=== PATIENT | male | born 1935 | race Caucasian/White ===

== ENCOUNTER 2020-07-07 18:56 | Inpatient (IN) | payer MEDICARE, OTHER ==
[~2020-07-07] VITALS: Ht 177.8 cm; Wt 69.9 kg
--- NOTE | 2020-07-07 19:03 | NUR ---
PT AAOX3 (NAME, , YEAR) [place]DE[place] FROM [facility] FOR BEING AGGRESSIVE. PT PLACED ON MONITOR AND PULSE OX. VSS. AWAITING ORDERS.
[2020-07-07 19:24] LABS: BASOPHILS % (AUTO) 0.2 % (0.0-2.0); EOSINOPHILS % (AUTO) 1.1 % (0.0-6.0); HEMATOCRIT 27 % (39-51); HEMOGLOBIN 9.3 g/dL (13.5-17.5); LYMPHOCYTES # (AUTO) 0.5 /CMM (0.8-4.8); MEAN CORPUSCULAR HGB CONC 34 g/dl (31.0-36.0); MEAN CORPUSCULAR VOLUME 103 fL (80-96); MONOCYTES # (AUTO) 0.5 /CMM (0.1-1.30); MONOCYTES % (AUTO) 7.3 % (2.0-12.0); NEUTROPHILS # (AUTO) 5.7 /CMM (1.8-8.9); NEUTROPHILS % (AUTO) 84.4 % (43.0-81.0); PLATELET COUNT (AUTO) 208 /CMM (150-450); RED BLOOD CELL COUNT(AUTO) 2.64 MIL/uL (4.5-6.0); WHITE BLOOD COUNT (AUTO) 6.8 K/uL (4.3-11.0)
[2020-07-07 19:32] LABS: CALCIUM, SERUM 8.9 mg/dL (8.5-10.1); CARBON DIOXIDE 25 mmol/L (21-32); CHLORIDE 108 mmol/L (98-107); CREATININE 2.4 mg/dL (0.6-1.3); GLUCOSE 241 mg/dL (74-106); POTASSIUM 5.5 mmol/L (3.5-5.1); SODIUM SERUM 143 mmol/L (136-145); UREA NITROGEN, BLOOD 62 mg/dL (7-18)
[2020-07-07 19:38] LABS: ALANINE AMINOTRANSFERASE 52 U/L (12-78); ALBUMIN 2.9 g/dL (3.4-5.0); ALCOHOL, BLOOD < 3 mg/dL (0-0); ALKALINE PHOSPHATASE 52 U/L (46-116); ASPARTATE AMINOTRANSFERASE 58 U/L (15-37); BILIRUBIN,DIRECT 0.1 mg/dL (0.0-0.2); BILIRUBIN,TOTAL 0.2 mg/dL (0.2-1.0); TOTAL PROTEIN, SERUM 6.3 g/dL (6.4-8.2)
[2020-07-07 19:40] LABS: ACETAMINOPHEN < 2 ug/ml (10-30)
[2020-07-07 20:13] LABS: BILIRUBIN,URINE Negative (NEGATIVE); COLOR,URINE YELLOW (YELLOW); LEUKOCYTE ESTERASE ,URINE Moderate (NEGATIVE); NITRITE, URINE Positive (NEGATIVE); PH,URINE 5.5 (5.0-8.0); PROTEIN,URINE 100 mg/dl (NEGATIVE); UGLUCOSE Negative (NEGATIVE); UROBILINOGEN,URINE 0.2 EU/dL (0.2)
[2020-07-07 20:19] LABS: BACTERIA,URINE 3+ /HPF (None Seen); RBC,URINE 51-80 /HPF (0-2); SQUAMOUS EPITHELIAL CELL,UR Few /HPF (None Seen); WBC,URINE TOO NUMEROUS TO COUN /HPF (0-3)
[2020-07-07] MEDS ORDERED: ASPIRIN 81 MG TAB.CHEW PO ONE (20:30)
[2020-07-07] MEDS ORDERED: ASPIRIN 81 MG TAB.CHEW ONE (20:33)
[2020-07-07] MEDS ORDERED: MAG HYDROX/AL HYDROX/SIMETH 30 ML UDC PO PRN (21:00)
[2020-07-07] MEDS ORDERED: ACETAMINOPHEN 325 MG TABLET PO PRN (21:00)
[2020-07-07] MEDS ORDERED: LORAZEPAM 1 MG TABLET PO PRN (21:00)
[2020-07-07] MEDS ORDERED: MORPHINE SULFATE INJ 2 MG/ML DISP.SYRIN IV PRN (21:00)
[2020-07-07] MEDS ORDERED: NITROGLYCERIN 0.4 MG/TAB BOTTLE SL PRN (21:00)
[2020-07-07] MEDS ORDERED: DOCUSATE SODIUM 100 MG CAPSULE PO PRN (21:00)
[2020-07-07] MEDS ORDERED: ONDANSETRON HCL/PF 4 MG/2 ML VIAL IVP PRN (21:00)
--- NOTE | 2020-07-07 21:52 | NUR ---
BED ASSIGNMENT 104
[2020-07-07 22:00] VITALS: BP 138/55
--- NOTE | 2020-07-07 22:36 | NUR ---
RN NOTE RECEIVED PT FROM ER ACCOMPANIED BY RN AND EMT UNDER ACLS PROTOCOL. PT IS ALERT AND ORIENTED X 2 WITH PHYSICAL AND VERBAL AGGRESSION TOWARDS STAFF. ON ROOM AIR, RESPIRATIONS UNLABORED, DENIES PAIN OR DISCOMFORT, SR ON THE TELE MONITOR, VITAL SIGNS STABLE, COMPREHENSIVE PHYSICAL ASSESSMENT AND BELONGING CHECK DONE, WITH RIGHT HAND 20G IV DONE. SAFETY MEASURES IN PLACE PER PROTOCOL, BED ALARM ON, BED LOCKED AND IN LOW POSITION, SIDE RAILS UP X 2, WILL MONITOR PATIENT AND CARRY OUT ACTIVE MD ORDERS.
--- NOTE | 2020-07-07 22:40 | NUR ---
REPORT VENKAT ZEPEDA, PT TRANSFERED PER ACLS PROTOCOL
--- NOTE | 2020-07-07 23:12 | NUR ---
RN NOTE PT PHYSICALLY AND VERBALLY AGGRESSIVE. ALSO ATTEMPTING TO PULL OUT IV AND PUNCH STAFF MEMBERS DESPITE REORIENTATION AND DE-ESCALATION OF STIMULI, OBTAINED ORDER FOR BILATERAL SOFT WRIST RESTRAINTS FROM [facility].
[2020-07-08] MEDS ORDERED: CEFTRIAXONE 1 G VIAL ONE (00:34)
[2020-07-08] MEDS: CEFTRIAXONE 1 G in IV D5W 50 ML IV SCH ×2 (00:37→23:21)
[2020-07-08 03:57] LABS: BASOPHILS % (AUTO) 0.2 % (0.0-2.0); EOSINOPHILS % (AUTO) 1.9 % (0.0-6.0); HEMATOCRIT 25 % (39-51); HEMOGLOBIN 8.7 g/dL (13.5-17.5); LYMPHOCYTES # (AUTO) 0.6 /CMM (0.8-4.8); LYMPHOCYTES % (AUTO) 9.6 % (20.0-44.0); MEAN CORPUSCULAR HGB CONC 34 g/dl (31.0-36.0); MEAN CORPUSCULAR VOLUME 102 fL (80-96); MONOCYTES # (AUTO) 0.5 /CMM (0.1-1.30); MONOCYTES % (AUTO) 8.3 % (2.0-12.0); NEUTROPHILS # (AUTO) 4.9 /CMM (1.8-8.9); PLATELET COUNT (AUTO) 194 /CMM (150-450); RED BLOOD CELL COUNT(AUTO) 2.47 MIL/uL (4.5-6.0); WHITE BLOOD COUNT (AUTO) 6.1 K/uL (4.3-11.0)
[2020-07-08 04:00] VITALS: BP 140/62
[2020-07-08 04:54] LABS: ALANINE AMINOTRANSFERASE 52 U/L (12-78); ALBUMIN 2.7 g/dL (3.4-5.0); ALKALINE PHOSPHATASE 49 U/L (46-116); ASPARTATE AMINOTRANSFERASE 49 U/L (15-37); BILIRUBIN,TOTAL 0.2 mg/dL (0.2-1.0); CALCIUM, SERUM 8.8 mg/dL (8.5-10.1); CARBON DIOXIDE 23 mmol/L (21-32); CHLORIDE 109 mmol/L (98-107); GLUCOSE 159 mg/dL (74-106); PHOSPHORUS 3.5 mg/dL (2.5-4.9); POTASSIUM 4.6 mmol/L (3.5-5.1); SODIUM SERUM 145 mmol/L (136-145); UREA NITROGEN, BLOOD 62 mg/dL (7-18)
[2020-07-08 05:06] LABS: CHOLESTEROL 70 mg/dL (<200); HDL CHOLESTEROL 43 mg/dL (40-60); LDL 23 mg/dL (0-99); THYROID STIMULATING HORMONE 5.052 uIU/mL (0.358-3.74); TRIGLYCERIDES 41 mg/dL (30-150)
--- NOTE | 2020-07-08 06:33 | NUR ---
RN NOTE NO ACUTE CHANGES OBSERVED OVERNIGHT, PT CURRENTLY SLEEPING IN BED IN SEMI MAGUIRE'S POSITION. NO SIGNS OF PAIN OR DISCOMFORT. ON ROOM AIR, RESPIRATIONS UNLABORED, SR ON THE TELE MONITOR, WITH RIGHT HAND 20G IV FLUSHED AND PATENT WITHOUT COMPLICATIONS NOTED AT SITE. ALL NEEDS MET AND ATTENDED TO, SAFETY MEASURES IN PLACE PER PROTOCOL, BILATERAL SOFT WRIST RESTRAINTS IN PLACE ORDERED FOR SAFETY, VISUAL AND CIRCULATORY CHECKS DONE Q15M, BED ALARM ON, BED LOCKED AND IN LOW POSITION, SIDE RAILS UP X 2, WILL ENDORSE TO MORNING RN FOR JOSH.
--- NOTE | 2020-07-08 07:59 | NUR ---
CASING SPLITTER NOTE RECEIVED LYING IN BED IN SEMI MAGUIRE'S POSITION, AWAKE AND ALERT/ORIENTED PT CURRENTLY ON RA NO SOB NOTED AT THIS TIME . RESPIRATIONS EVEN AND UNLABORED. PT DENIES TROUBLE BREATHING. PT ALSO DENIES PAIN OR DISCOMFORT AT THIS TIME. NSR ON THE CERTIFIED REAL ESTATE APPRAISER, IS WITH L RIGHT HAND 20G IV HL INTACT AND FLUSHED WELL PLAN OF CARE DISCUSSED, SAFETY MEASURES IN PLACE, BED LOCKED AND IN LOW POSITION, SIDE RAILS UP X 2, CALL LIGHT WITHIN REACH, WILL MONITOR PATIENT CLOSELY, FED BREAKFAST BY BILLY
[2020-07-08 08:00] VITALS: BP 134/49
[2020-07-08] MEDS: ENOXAPARIN SODIUM 30 MG/0.3 ML DISP.SYRIN SQ SCH (08:32)
[2020-07-08] MEDS: ASPIRIN 81 MG TAB.CHEW PO SCH (08:32)
--- NOTE | 2020-07-08 08:35 | NUR ---
WOUND CARE CONSULT: PT HAVING PROCEDURE AT THIS TIME. WILL SEE PT AT LATER TIME FOR SKIN ASSESSMENT.
[2020-07-08] MEDS ORDERED: ACET325T53 PO (08:57)
[2020-07-08] MEDS ORDERED: TADA5TAB13 PO (08:57)
[2020-07-08] MEDS ORDERED: ROSU40TA PO (08:57)
[2020-07-08] MEDS ORDERED: METO-357 PO (08:57)
[2020-07-08] MEDS ORDERED: INSU100V28 IJ (08:57)
[2020-07-08] MEDS ORDERED: CLOP75TA15 PO (08:57)
[2020-07-08] MEDS ORDERED: MEMA5TAB PO (08:57)
[2020-07-08] MEDS ORDERED: TAMS-12 PO (08:57)
[2020-07-08] MEDS ORDERED: DONE10TA44 PO (08:57)
[2020-07-08] MEDS ORDERED: RISP0.5T5 PO (08:57)
[2020-07-08] MEDS ORDERED: GABA-532 PO ×2 (08:57)
[2020-07-08] MEDS ORDERED: LEVO25TA7 PO (08:57)
[2020-07-08] MEDS ORDERED: MEGE40TA5 PO (08:57)
[2020-07-08] MEDS ORDERED: RISP0.5T65 PO (08:57)
[2020-07-08] MEDS: CARVEDILOL 12.5 MG TABLET PO SCH ×2 (09:13→21:35)
--- NOTE | 2020-07-08 09:14 | NUR ---
WOUND CARE CONSULT: PT PRESENTS WITH MULTIPLE WOUNDS, PRESENT ON ADMISSION INCLUDING SACRAL AND LOWER EXTREMITY WOUNDS. RECOMMEND SURGICAL AND DPM CONSULTS. DR SHELBY LAGUNAS AND DR CACERES CALLED FOR CONSULT REQUESTS. RECOMMENDATIONS MADE FOR SKIN PROTECTION AND WOUND CARE. DISCUSSED WITH NURSING STAFF. PT TO BE PLACED ON [facility] IS[facility] LOW AIRLOSS BED. IN AGREEMENT WITH PLAN OF CARE. Addendum: 07/08/20 at 0916 by DHRUV HANEY WNDNU Amended: Links added.
[2020-07-08] MEDS ORDERED: Z GUARD REMEDY 2 OZ OINT TP PRN (10:00)
[2020-07-08] MEDS ORDERED: HYDROGEL DRESSING 90 GM TUBE TP PRN (10:00)
[2020-07-08] MEDS: Z GUARD REMEDY 2 OZ OINT TP SCH (10:27)
[2020-07-08] MEDS: HYDROGEL DRESSING 90 GM TUBE TP SCH (10:28)
--- NOTE | 2020-07-08 10:49 | NUR ---
HOOKER OFF NOTE CONDOM CATH PLACED ORDERED
[2020-07-08] MEDS ORDERED: risperiDONE 0.25 MG TABLET PO PRN (11:30)
--- NOTE | 2020-07-08 11:35 | NUR ---
MS RN NOTE PER [facility] DOCTOR TIMOTHY PLACED ORDER FOR RISPERIDONE ,ORDER CARRIED OUT
[2020-07-08 12:00] VITALS: BP 106/52
[2020-07-08] MEDS ORDERED: ACETAMINOPHEN 325 MG TABLET PO PRN (12:00)
[2020-07-08] MEDS ORDERED: DEXTROSE 50%-WATER 50 ML DISP.SYRIN IV PRN (12:00)
[2020-07-08] MEDS: BLOOD SUGAR DIAGNOSTIC 1 EACH STRIP VI SCH ×3 (12:10→21:35)
--- NOTE | 2020-07-08 12:10 | NUR ---
WOMEN'S LACROSSE COACH NOTE REFUSED TO EAT ,HOLD COVERAGE WITH INSULIN FOR NOW BLOOD SUGAR 173 MG\ DL
--- NOTE | 2020-07-08 12:13 | NUR ---
WARD NURSE NOTE KEVIN ROLLINS DIESEL AUTOMOTIVE TECHNICIAN AT BEDSIDE , UPDATED PATIENT CONDITION
[2020-07-08] MEDS: IV NS 0.9% 1,000 ML IV PRN ×2 (12:35→23:33)
--- NOTE | 2020-07-08 12:35 | NUR ---
m/s care asst: notes received pt in bed asleep, but easily arousable. on albina wrist restraint, released and repositioned. kept comfortable. will continue to monitor.
--- NOTE | 2020-07-08 12:45 | NUR ---
ms rn note report given to Theodore grimm
--- NOTE | 2020-07-08 13:30 | NUR ---
m/s immigration manager: notes noted iv out, pt on lying on the side. pressure dressing applied to iv site. released and repositioned albina wrist restraint. kept pt comfortable. will continue to monitor.
[2020-07-08 15:05] VITALS: BP 106/52
[2020-07-08 16:00] VITALS: BP 154/62
--- NOTE | 2020-07-08 16:20 | NUR ---
m/s wad lubricator: notes consent obtained from jerrod jones (daughter)via phone with another nurse as a witnessed for Serial excisional wound debridment of right heel wound.
[2020-07-08] MEDS: MEGESTROL ACETATE 40 MG TABLET PO SCH (17:34)
[2020-07-08] MEDS: GABAPENTIN 100 MG CAPSULE PO SCH (17:34)
--- NOTE | 2020-07-08 19:15 | NUR ---
m/s process plant operator: notes report given to celestina (rn) for continuity of care.
--- NOTE | 2020-07-08 19:15 | NUR ---
RN NOTE RECEIVED PT CURRENTLY AWAKE IN BED IN LYING POSITION. CONFUSED. ALERT AND ORIENTED X 2 WITH VERBAL AGGRESSION. REORIENTED PT AND REPOSITIONED WITH 2 PERSON ASSIST. PT DENIES PAIN OR DISCOMFORT. ON ROOM AIR, RESPIRATIONS UNLABORED, WITH RIGHT UPPER ARM 20G IV FLUSHED AND PATENT WITHOUT COMPLICATIONS NOTED AT SITE. WITH NS @ 100ML/HOUR RUNNING ORDERED. CONDOM CATH IN PLACE. SAFETY MEASURES IN PLACE PER PROTOCOL, BILATERAL SOFT WRIST RESTRAINTS IN PLACE ORDERED FOR SAFETY, WILL DO VISUAL AND CIRCULATORY CHECKS Q15M, BED ALARM ON, BED LOCKED AND IN LOW POSITION, SIDE RAILS UP X 2, WILL MONITOR PT AND CARRY OUT ACTIVE MD ORDERS.
[2020-07-08 20:00] VITALS: BP 134/68
[2020-07-08] MEDS: GABAPENTIN 300 MG CAPSULE PO SCH (21:34)
[2020-07-08] MEDS: TAMSULOSIN 0.4 MG CAP.SR.24H PO SCH (21:34)
[2020-07-08] MEDS: *INSULIN REGULAR(HUMULIN R)HUM 100 UNIT/ML VIAL SQ PRN (21:40)
--- NOTE | 2020-07-08 23:19 | NUR ---
RN NOTE NOTED IV TO BE PULLED OUT. REINSERTED 20G IV ON LEFT FOREARM.
[2020-07-09 04:00] VITALS: BP 144/61
[2020-07-09 05:58] LABS: BASOPHILS % (AUTO) 0.3 % (0.0-2.0); EOSINOPHILS % (AUTO) 1.9 % (0.0-6.0); HEMATOCRIT 24 % (39-51); HEMOGLOBIN 8.2 g/dL (13.5-17.5); LYMPHOCYTES # (AUTO) 0.7 /CMM (0.8-4.8); LYMPHOCYTES % (AUTO) 12.9 % (20.0-44.0); MEAN CORPUSCULAR HGB CONC 34 g/dl (31.0-36.0); MEAN CORPUSCULAR VOLUME 102 fL (80-96); MONOCYTES # (AUTO) 0.4 /CMM (0.1-1.30); MONOCYTES % (AUTO) 7.5 % (2.0-12.0); NEUTROPHILS # (AUTO) 4.3 /CMM (1.8-8.9); NEUTROPHILS % (AUTO) 77.4 % (43.0-81.0); PLATELET COUNT (AUTO) 191 /CMM (150-450); RED BLOOD CELL COUNT(AUTO) 2.39 MIL/uL (4.5-6.0); WHITE BLOOD COUNT (AUTO) 5.5 K/uL (4.3-11.0)
--- NOTE | 2020-07-09 06:38 | NUR ---
RN NOTE NO CHANGES OBSERVED THROUGHOUT SHIFT. CURRENTLY SLEEPING IN BED IN LYING POSITION. NO SIGNS OF DISTRESS PAIN OR DISCOMFORT, ON ROOM AIR, RESPIRATIONS UNLABORED, WITH LEFT FOREARM 20G IV FLUSHED AND PATENT WITHOUT COMPLICATIONS NOTED AT SITE. WITH NS @ 100ML/HOUR RUNNING ORDERED. SAFETY MEASURES IN PLACE, BILATERAL SOFT WRIST RESTRAINTS IN PLACE ORDERED FOR SAFETY, VISUAL AND CIRCULATORY CHECKS DONE Q15M, BED ALARM ON, BED LOCKED AND IN LOW POSITION, SIDE RAILS UP X 2, WILL ENDORSE TO MORNING RN FOR JOSH.
[2020-07-09 07:06] LABS: ALANINE AMINOTRANSFERASE 41 U/L (12-78); ALBUMIN 2.5 g/dL (3.4-5.0); ALKALINE PHOSPHATASE 41 U/L (46-116); ASPARTATE AMINOTRANSFERASE 36 U/L (15-37); BILIRUBIN,TOTAL 0.3 mg/dL (0.2-1.0); CALCIUM, SERUM 8.6 mg/dL (8.5-10.1); CARBON DIOXIDE 22 mmol/L (21-32); CHLORIDE 112 mmol/L (98-107); CREATININE 1.5 mg/dL (0.6-1.3); GLUCOSE 126 mg/dL (74-106); MAGNESIUM 1.8 mg/dL (1.8-2.4); PHOSPHORUS 3.4 mg/dL (2.5-4.9); POTASSIUM 4.5 mmol/L (3.5-5.1); SODIUM SERUM 147 mmol/L (136-145); TOTAL PROTEIN, SERUM 5.5 g/dL (6.4-8.2); UREA NITROGEN, BLOOD 46 mg/dL (7-18)
[2020-07-09] MEDS: BLOOD SUGAR DIAGNOSTIC 1 EACH STRIP VI SCH ×4 (07:30→21:09)
--- NOTE | 2020-07-09 07:48 | NUR ---
RN NOTE RECEIVED PATIENT RESTING IN BED. NO SIGNS OF DISTRESS PAIN OR DISCOMFORT, ON ROOM AIR, RESPIRATIONS UNLABORED, WITH LEFT FOREARM 20G IV FLUSHED AND PATENT WITHOUT COMPLICATIONS NOTED AT SITE. WITH NS @ 100ML/HOUR RUNNING ORDERED. SAFETY MEASURES IN PLACE, BILATERAL SOFT WRIST RESTRAINTS IN PLACE ORDERED FOR SAFETY, NO SIGNS OF POOR CIRCULATION. BED ALARM ON, BED LOCKED AND IN LOW POSITION, SIDE RAILS UP X 2, WILL CONTINUE TO MONITOR.
[2020-07-09 08:00] VITALS: BP 113/68
[2020-07-09] MEDS: ATORVASTATIN 40 MG TABLET PO SCH (08:13)
[2020-07-09] MEDS: ASPIRIN 81 MG TAB.CHEW PO SCH (08:13)
[2020-07-09] MEDS: DONEPEZIL 5 MG TABLET PO SCH (08:13)
[2020-07-09] MEDS: MEMANTINE HCL 5 MG TABLET PO SCH (08:13)
[2020-07-09] MEDS: MEGESTROL ACETATE 40 MG TABLET PO SCH ×2 (08:13→16:27)
[2020-07-09] MEDS: LEVOTHYROXINE SODIUM 25 MCG TABLET PO SCH (08:13)
[2020-07-09] MEDS: CLOPIDOGREL BISULFATE 75 MG TABLET PO SCH (08:13)
[2020-07-09] MEDS: GABAPENTIN 100 MG CAPSULE PO SCH ×2 (08:14→16:26)
[2020-07-09] MEDS: CARVEDILOL 12.5 MG TABLET PO SCH ×2 (08:19→21:09)
[2020-07-09] MEDS: ENOXAPARIN SODIUM 30 MG/0.3 ML DISP.SYRIN SQ SCH (08:21)
[2020-07-09] MEDS: THERAHONEY GEL 1.5 OZ TUBE TP SCH (08:59)
[2020-07-09] MEDS: HYDROGEL DRESSING 90 GM TUBE TP SCH (09:00)
[2020-07-09] MEDS ORDERED: METOPROLOL SUCCINATE 50 MG TAB.SR.24H PO SCH (09:00)
[2020-07-09] MEDS ORDERED: Medication Not On Formulary EA (Tadalafil 5 MG) PO SCH (09:00)
[2020-07-09] MEDS: Z GUARD REMEDY 2 OZ OINT TP SCH (09:00)
[2020-07-09 09:48] LABS: IRON, SERUM 33 ug/dl (50-175); TOTAL IRON BINDING CAPACITY 171 ug/dl (250-450)
[2020-07-09 11:29] LABS: FERRITIN 347 ng/mL (8-388)
[2020-07-09 12:00] VITALS: BP 113/68
[2020-07-09] MEDS: INSULIN REGULAR, HUMAN 100 UNIT/ML 3 ML VIAL SQ PRN (12:03)
[2020-07-09] MEDS: IV NS 0.9% 1,000 ML IV PRN ×2 (15:14→23:20)
[2020-07-09 16:00] VITALS: BP 122/53
--- NOTE | 2020-07-09 18:11 | NUR ---
MS RN CLOSING NOTE PT RESTING IN BED. A/O X2 WITH CONFUSION. NO SIGNS OF DISTRESS PAIN OR DISCOMFORT, ON ROOM AIR, RESPIRATIONS UNLABORED, WITH LEFT FOREARM 20G IV PATENT, RUNNING NS 1000 @ 100ML/HR. WITHOUT COMPLICATIONS NOTED AT SITE. SAFETY MEASURES IN PLACE, BILATERAL SOFT WRIST RESTRAINTS IN PLACE ORDERED FOR SAFETY, VISUAL AND CIRCULATORY CHECKS DONE Q15M, BED ALARM ON, BED LOCKED AND IN LOW POSITION, SIDE RAILS UP X 2, WILL ENDORSE TO ONCOMING SHIFT.
--- NOTE | 2020-07-09 19:22 | NUR ---
RN NOTE RECEIVED PT CURRENTLY SLEEPING IN BED WITH HEAD OF BED ELEVATED. PT WITHOUT SIGNS OF PAIN OR DISCOMFORT. ON ROOM AIR, RESPIRATIONS UNLABORED, WITH LEFT FOREARM 20G IV FLUSHED AND PATENT WITHOUT COMPLICATIONS NOTED AT SITE. WITH NS @ 100ML/HOUR RUNNING ORDERED. SAFETY MEASURES IN PLACE PER PROTOCOL, BILATERAL SOFT WRIST RESTRAINTS IN PLACE ORDERED FOR SAFETY, WILL DO VISUAL AND CIRCULATORY CHECKS Q15M, BED ALARM ON, BED LOCKED AND IN LOW POSITION, SIDE RAILS UP X 2, WILL MONITOR PT AND CARRY OUT ACTIVE MD ORDERS.
[2020-07-09 20:00] VITALS: BP 147/56
[2020-07-09] MEDS: TAMSULOSIN 0.4 MG CAP.SR.24H PO SCH (21:09)
[2020-07-09] MEDS: GABAPENTIN 300 MG CAPSULE PO SCH (21:09)
[2020-07-09] MEDS: *INSULIN REGULAR(HUMULIN R)HUM 100 UNIT/ML VIAL SQ PRN (21:12)
[2020-07-09] MEDS: CEFTRIAXONE 1 G in IV D5W 50 ML IV SCH (22:30)
--- NOTE | 2020-07-09 23:50 | NUR ---
RN NOTE REPORT GIVEN TO ALISA ROLLINS FOR CONTINUATION OF CARE.
--- NOTE | 2020-07-10 | NUR ---
PT RECEIVED IN BED, ALERT, CONFUSED AND ATTEMPTING TO PULL AT LINES. PT IS CALM AND NON COMBATIVE. RESPIRATIONS EVEN AND UNLABORED. NO S/S OF ACUTE DISTRESS. SAFETY MAINTAINED. PT STABLE AT THIS TIME.
[2020-07-10 05:55] LABS: BASOPHILS % (AUTO) 0.2 % (0.0-2.0); EOSINOPHILS % (AUTO) 1.4 % (0.0-6.0); HEMATOCRIT 26 % (39-51); LYMPHOCYTES # (AUTO) 0.8 /CMM (0.8-4.8); LYMPHOCYTES % (AUTO) 10.4 % (20.0-44.0); MEAN CORPUSCULAR HGB CONC 34 g/dl (31.0-36.0); MEAN CORPUSCULAR VOLUME 101 fL (80-96); MONOCYTES # (AUTO) 0.4 /CMM (0.1-1.30); MONOCYTES % (AUTO) 5.6 % (2.0-12.0); NEUTROPHILS # (AUTO) 6.1 /CMM (1.8-8.9); NEUTROPHILS % (AUTO) 82.4 % (43.0-81.0); PLATELET COUNT (AUTO) 213 /CMM (150-450); WHITE BLOOD COUNT (AUTO) 7.4 K/uL (4.3-11.0)
[2020-07-10 06:23] LABS: ALANINE AMINOTRANSFERASE 42 U/L (12-78); ALBUMIN 2.5 g/dL (3.4-5.0); ALKALINE PHOSPHATASE 46 U/L (46-116); ASPARTATE AMINOTRANSFERASE 32 U/L (15-37); BILIRUBIN,TOTAL 0.3 mg/dL (0.2-1.0); CALCIUM, SERUM 8.5 mg/dL (8.5-10.1); CARBON DIOXIDE 23 mmol/L (21-32); CHLORIDE 109 mmol/L (98-107); CREATININE 1.6 mg/dL (0.6-1.3); GLUCOSE 98 mg/dL (74-106); MAGNESIUM 1.7 mg/dL (1.8-2.4); PHOSPHORUS 3.3 mg/dL (2.5-4.9); POTASSIUM 4.4 mmol/L (3.5-5.1); SODIUM SERUM 144 mmol/L (136-145); TOTAL PROTEIN, SERUM 5.8 g/dL (6.4-8.2); UREA NITROGEN, BLOOD 38 mg/dL (7-18)
--- NOTE | 2020-07-10 06:23 | NUR ---
PRIMARY ASSESSMENT UNCHANGED. PT DOES ATTEMPT TO PULL AT EQUIPMENT. INCONTINENT OF BOWEL AND BLADDER. NO S/S OF SOB OR DYSPNEA. SAFETY MAINTAINED. PT STABLE AT THIS TIME.
--- NOTE | 2020-07-10 07:30 | NUR ---
TILER'S ASSISTANT NOTES Patient is alert and oriented x 1/2. He is breathing even and unlabored. on room air with 02 sat 97%. Bilateral soft wrist restraints noted with no s/s of skin breakdown. Left forearm 20 gauze noted at 100 cc/hour N/S. Bed is in lowest and locked position. Call light with in reach. Will continue to monitor.
[2020-07-10 08:00] VITALS: BP 129/70
[2020-07-10] MEDS: BLOOD SUGAR DIAGNOSTIC 1 EACH STRIP VI SCH ×4 (09:06→21:52)
[2020-07-10] MEDS: CLOPIDOGREL BISULFATE 75 MG TABLET PO SCH (09:09)
[2020-07-10] MEDS: ASPIRIN 81 MG TAB.CHEW PO SCH (09:10)
[2020-07-10] MEDS: ATORVASTATIN 40 MG TABLET PO SCH (09:11)
[2020-07-10] MEDS: ENOXAPARIN SODIUM 30 MG/0.3 ML DISP.SYRIN SQ SCH (09:11)
[2020-07-10] MEDS: GABAPENTIN 100 MG CAPSULE PO SCH ×2 (09:11→17:29)
[2020-07-10] MEDS: INSULIN REGULAR, HUMAN 100 UNIT/ML 3 ML VIAL SQ PRN ×2 (09:11→13:49)
[2020-07-10] MEDS: MEMANTINE HCL 5 MG TABLET PO SCH (09:12)
[2020-07-10] MEDS: MEGESTROL ACETATE 40 MG TABLET PO SCH ×2 (09:12→17:29)
[2020-07-10] MEDS: LEVOTHYROXINE SODIUM 25 MCG TABLET PO SCH (09:12)
[2020-07-10] MEDS: DONEPEZIL 5 MG TABLET PO SCH (09:13)
[2020-07-10] MEDS: CARVEDILOL 12.5 MG TABLET PO SCH ×2 (09:15→21:32)
[2020-07-10] MEDS: HYDROGEL DRESSING 90 GM TUBE TP SCH (10:03)
[2020-07-10] MEDS: Z GUARD REMEDY 2 OZ OINT TP SCH (10:03)
[2020-07-10] MEDS: THERAHONEY GEL 1.5 OZ TUBE TP SCH (10:03)
[2020-07-10] MEDS ORDERED: Magnesium 1GM/D5W 100ML PREMIX 100 ML IV SCH (10:30)
[2020-07-10 15:58] VITALS: BP 116/60
[2020-07-10] MEDS: IV NS 0.9% 1,000 ML IV PRN (18:22)
--- NOTE | 2020-07-10 19:22 | NUR ---
PT RECEIVED IN BED, AOX1-2, BILAT WRIST RESTRAINTS ON, RESPIRATIONS EVEN AND UNLABORED. NS @100 INFUSING THROUGH #20 LFA. NO S/S OF ACUTE DISTRESS. CALL LIGHT WITHIN REACH, BED IN LOWEST POSITION AND ENCOURAGED TO CALL FOR ASSIST. WILL CONTINUE TO MONITOR.
--- NOTE | 2020-07-10 19:34 | NUR ---
DRIVER MANAGER NOTES Patient is alert and oriented x 1/2. He is breathing even and unlabored. on room air with 02 sat 99 %. Bilateral soft wrist restraints noted with no s/s of skin breakdown. Left forearm 20 gauze noted at 100 cc/hour N/S. Bed is in lowest and locked position. Call light with in reach. Will continue to monitor.
[2020-07-10 20:00] VITALS: BP 143/69
[2020-07-10] MEDS: GABAPENTIN 300 MG CAPSULE PO SCH (21:31)
[2020-07-10] MEDS: TAMSULOSIN 0.4 MG CAP.SR.24H PO SCH (21:31)
[2020-07-10] MEDS: *INSULIN REGULAR(HUMULIN R)HUM 100 UNIT/ML VIAL SQ PRN (21:59)
[2020-07-10] MEDS ORDERED: methylPREDNISolone SOD SUCC 40 MG/ML VIAL IV ONE (22:30)
[2020-07-10] MEDS: CEFTRIAXONE 1 G in IV D5W 50 ML IV SCH (23:12)
--- NOTE | 2020-07-10 23:20 | NUR ---
CALL PLACED TO SHERI BALBUENA. PT HAVING AUDITIORY WHEEZING. DENIES SOB AND DYSPNEA. RESPIRATIONS EVEN AND UNLABORED. NO S/S OF ACUTE DISTRESS. WILL CONTINUE TO MONITOR.
[2020-07-11 05:47] LABS: BASOPHILS % (AUTO) 0.2 % (0.0-2.0); EOSINOPHILS % (AUTO) 0.1 % (0.0-6.0); HEMATOCRIT 26 % (39-51); HEMOGLOBIN 9.1 g/dL (13.5-17.5); LYMPHOCYTES # (AUTO) 0.4 /CMM (0.8-4.8); MEAN CORPUSCULAR HGB CONC 34 g/dl (31.0-36.0); MEAN CORPUSCULAR VOLUME 102 fL (80-96); MONOCYTES # (AUTO) 0.1 /CMM (0.1-1.30); MONOCYTES % (AUTO) 1.2 % (2.0-12.0); NEUTROPHILS # (AUTO) 6.8 /CMM (1.8-8.9); NEUTROPHILS % (AUTO) 92.5 % (43.0-81.0); PLATELET COUNT (AUTO) 209 /CMM (150-450); RED BLOOD CELL COUNT(AUTO) 2.59 MIL/uL (4.5-6.0); WHITE BLOOD COUNT (AUTO) 7.4 K/uL (4.3-11.0)
[2020-07-11 06:00] LABS: CALCIUM, SERUM 8.4 mg/dL (8.5-10.1); CARBON DIOXIDE 18 mmol/L (21-32); CHLORIDE 109 mmol/L (98-107); CREATININE 1.7 mg/dL (0.6-1.3); GLUCOSE 109 mg/dL (74-106); POTASSIUM 5.3 mmol/L (3.5-5.1); SODIUM SERUM 142 mmol/L (136-145); UREA NITROGEN, BLOOD 44 mg/dL (7-18)
[2020-07-11] MEDS: IV NS 0.9% 1,000 ML IV PRN ×2 (06:10→16:25)
--- NOTE | 2020-07-11 06:22 | NUR ---
INFORMED JAYSON BALBUENA OF AUDITORY WHEEZES AND IVF ORDERED .NEW ORDER RECEIVED
--- NOTE | 2020-07-11 06:27 | NUR ---
PT IS ALERT AND VERY CONFUSED. WHEN ATTEMPTED TO REMOVE FOOT DSG, PT GOT AGITATED AND BEGAN TO KICK. PT REFUSED PHOTOS. NOTIFIED JAYSON BALBUENA OF PT'S AUDITORY WHEEZING,. GAVE SOLU MEDROL 410 MG IVP X1 DOSE ORDERED. PT RESPONDED WELL TO MED. 0630 REPEATED NOTIFICATION OF AUDITORY WHEEZING AND ORDERED TO HOLD IVF. RESPIRATIONS CONTINUE TO EVEN AND UNLABORED. NO SOB NOTED. PT DENIES RESPIRATORY DISCOMFORT. HOB ELEVATED . BILAT WRIST RESTRAINTS IN PLACE Addendum: 07/11/20 at 0635 by ALISA PERSAUD RN CALL LIGHT WITHIN REACH. BED IN LOWEST POSITION, AND SAFETY MAINTAINED FOR STAFF AND PATIENT. WILL CONTINUE TO MONITOR
--- NOTE | 2020-07-11 07:30 | NUR ---
RN OPENING NOTE PATIENT IS IN BED WITH HOB AT SEMI MAGUIRE'S POSITION. PATIENT IS CURRENTLY ON ROOM AIR WITH WHEEZES ON INSPIRATION. PATIENT IS AOX1 AND CONFUSED. L MEDIAL FOOT, SACRAL STAGE 3, RHEEL DTI, LHEEL DIABETIC ULCER HAVE BEEN NOTED. #20 LFA HAS IS PATENT, INTACT, AND HAS NO SIGNS OF INFILTRATION. BILATERAL SOFT WRIST RESTRAINTS ARE APPLIED. BED IS LOCKED IN THE LOWEST POSITION, CALL ROD WITHIN REACH, 4 GUARD RAILS RAISED, AND ALL HOSPITAL SAFETY PRECAUTIONS ARE BEING FOLLOWED. WILL CONTINUE TO MONITOR THROUGHOUT SHIFT.
[2020-07-11] MEDS: LEVOTHYROXINE SODIUM 25 MCG TABLET PO SCH (07:46)
[2020-07-11] MEDS: BLOOD SUGAR DIAGNOSTIC 1 EACH STRIP VI SCH ×4 (07:57→22:05)
[2020-07-11] MEDS: Z GUARD REMEDY 2 OZ OINT TP SCH (09:00)
[2020-07-11] MEDS: HYDROGEL DRESSING 90 GM TUBE TP SCH (09:00)
[2020-07-11] MEDS: THERAHONEY GEL 1.5 OZ TUBE TP SCH (09:00)
[2020-07-11] MEDS: GABAPENTIN 100 MG CAPSULE PO SCH ×2 (09:05→16:25)
[2020-07-11] MEDS: ASPIRIN 81 MG TAB.CHEW PO SCH (09:05)
[2020-07-11] MEDS: MEGESTROL ACETATE 40 MG TABLET PO SCH ×2 (09:06→16:25)
[2020-07-11] MEDS: DONEPEZIL 5 MG TABLET PO SCH (09:06)
[2020-07-11] MEDS: ATORVASTATIN 40 MG TABLET PO SCH (09:06)
[2020-07-11] MEDS: CLOPIDOGREL BISULFATE 75 MG TABLET PO SCH (09:07)
[2020-07-11] MEDS: MEMANTINE HCL 5 MG TABLET PO SCH (09:07)
[2020-07-11] MEDS: CARVEDILOL 12.5 MG TABLET PO SCH ×2 (09:08→20:43)
[2020-07-11] MEDS: ENOXAPARIN SODIUM 30 MG/0.3 ML DISP.SYRIN SQ SCH (09:13)
[2020-07-11] MEDS: *INSULIN REGULAR(HUMULIN R)HUM 100 UNIT/ML VIAL SQ PRN ×4 (09:16→22:07)
--- NOTE | 2020-07-11 09:50 | NUR ---
NEW VEHICLE SALES CONSULTANT NOTE NOTIFIED EXTRACTION SUPERVISOR KEVIN WESTFALL ABOUT INSPIRATORY WHEEZES.
[2020-07-11] MEDS ORDERED: ALBUTEROL FS 2.5 MG/3 ML VIAL.NEB IH PRN (11:30)
--- NOTE | 2020-07-11 13:20 | NUR ---
FISH TECHNOLOGIST NOTE NOTIFIED RT OF INSPIRATORY WHEEZES AND IF THEY COULD ADMINISTER PRN ALBUTEROL VIA NEB.
--- NOTE | 2020-07-11 19:16 | NUR ---
RN CLOSING NOTE PATIENT IS IN BED WITH HOB AT SEMI MAGUIRE'S POSITION. PATIENT IS CURRENTLY ON ROOM AIR WITH NO SIGNS OF DISTRESS. PATIENT IS AOX1 AND CONFUSED. L MEDIAL FOOT, SACRAL STAGE 3, RHEEL DTI, LHEEL DIABETIC ULCER HAVE APPROPRIATE DRESSINGS APPLIED. #20 LFA HAS IS PATENT, INTACT, AND HAS NO SIGNS OF INFILTRATION. BILATERAL SOFT WRIST RESTRAINTS ARE APPLIED. BED IS LOCKED IN THE LOWEST POSITION, CALL ROD WITHIN REACH, 4 GUARD RAILS RAISED, AND ALL HOSPITAL SAFETY PRECAUTIONS ARE BEING FOLLOWED. WILL ENDORSE TO WAGON DRILL OPERATOR RN.
[2020-07-11 20:00] VITALS: BP 149/73
--- NOTE | 2020-07-11 20:00 | NUR ---
RN NOTE RECEIVED PT IN BED ALERT, CONFUSED. REORIENTED TO TIME PLACE AND SITUATION. AUDIBLE WHEEZING NOTED. NO DISTRESS NOTED. O2 SAT AT 96 %. PT WITH BILATERAL WRIST RESTRAINTS, SKIN AND CIRCULATION GOOD. WOUND DRESSINGS CLEAN DRY AND INTACT. NO BLEEDING NOTED FROM S/P DEBRIDEMENT. LFA IV PATENT AND INTACT WITH NS RUNNING AT 75 ML/HR. NO SIGNS OF INFILTRATION NOTED. ALL SAFETY MEASURES IMPLEMENTED PER PROTOCOL. GEORGINA LIGHT WITHIN REACH. BED LOCKED IN LOWEST POSITION, SIDE RAILS UP.
[2020-07-11] MEDS: ALBUTEROL FS 2.5 MG/3 ML VIAL.NEB NEB SCH (20:25)
[2020-07-11] MEDS: risperiDONE 0.25 MG TABLET PO SCH (20:43)
[2020-07-11] MEDS: TAMSULOSIN 0.4 MG CAP.SR.24H PO SCH (21:43)
[2020-07-11] MEDS: GABAPENTIN 300 MG CAPSULE PO SCH (21:43)
[2020-07-11] MEDS: CEFTRIAXONE 1 G in IV D5W 50 ML IV SCH (23:43)
--- NOTE | 2020-07-12 | NUR ---
RN NOTE INSERTED NEW IV LINE ON RFA G20. WITH GOOD BLOOD RETURN. NO S/SX OF INFILTRATION NOTED.
[2020-07-12] MEDS: ALBUTEROL FS 2.5 MG/3 ML VIAL.NEB NEB SCH ×7 (01:19→23:30)
[2020-07-12 04:00] VITALS: BP 126/57
[2020-07-12] MEDS: IV NS 0.9% 1,000 ML IV PRN ×2 (05:02→16:43)
--- NOTE | 2020-07-12 07:00 | NUR ---
RN NOTES PT REMAINS IN BED, NO ACUTE CHANGES NOTED. NO RESP DISTRESS. TOLERATING ROOM AIR. PT RECEIVING ALBUTEROL Q4H FOR WHEEZING. CONTINUE ON IVF NS RUNNING AT 100 ML/HR. NO SIGNS OF INFILTRATION NOTED. ALL SAFETY MEASURES MAINTAINED. WILL ENDORSE TO NEXT SHIFT NURSE FOR JOSH.
--- NOTE | 2020-07-12 07:00 | NUR ---
RN OPENING NOTE PATIENT IN BED SEMI MAGUIRE'S, A/Ox1 AND CONFUSED, WILL REORIENT EVERY TIME IM WITH PT. PT ON ROOM AIR WITH NO SIGNS OF RESP DISTRESS RO SOB. L MEDIAL FOOT, SACRAL STAGE 3, RHEEL DTI, LHEEL DIABETIC ULCER HAVE APPROPRIATE DRESSINGS APPLIED. #20 LFA HAS IS RUNNING NS @ 100ML/HR, RFA #20 SL, BOTH LINES FLUSHED, PATENT, INTACT, AND HAS NO SIGNS OF INFECTION/INFILTRATION. BILATERAL SOFT WRIST RESTRAINTS ARE APPLIED, BILAT CMS INTACT. BED IS LOCKED IN THE LOWEST POSITION, CALL ROD WITHIN REACH, 4 GUARD RAILS RAISED, AND ALL HOSPITAL SAFETY PRECAUTIONS ARE BEING FOLLOWED. WILL CONT TO MONITOR
[2020-07-12] MEDS: BLOOD SUGAR DIAGNOSTIC 1 EACH STRIP VI SCH ×4 (07:30→21:27)
[2020-07-12 08:00] VITALS: BP 113/53
[2020-07-12] MEDS: ASPIRIN 81 MG TAB.CHEW PO SCH (09:21)
[2020-07-12] MEDS: GABAPENTIN 100 MG CAPSULE PO SCH ×2 (09:21→17:24)
[2020-07-12] MEDS: ATORVASTATIN 40 MG TABLET PO SCH (09:22)
[2020-07-12] MEDS: DONEPEZIL 5 MG TABLET PO SCH (09:22)
[2020-07-12] MEDS: MEMANTINE HCL 5 MG TABLET PO SCH (09:22)
[2020-07-12] MEDS: LEVOTHYROXINE SODIUM 25 MCG TABLET PO SCH (09:22)
[2020-07-12] MEDS: CARVEDILOL 12.5 MG TABLET PO SCH ×2 (09:23→20:51)
[2020-07-12] MEDS: ENOXAPARIN SODIUM 30 MG/0.3 ML DISP.SYRIN SQ SCH (09:26)
[2020-07-12] MEDS: MEGESTROL ACETATE 40 MG TABLET PO SCH ×2 (09:26→17:24)
[2020-07-12] MEDS: CLOPIDOGREL BISULFATE 75 MG TABLET PO SCH (09:31)
[2020-07-12] MEDS: HYDROGEL DRESSING 90 GM TUBE TP SCH (09:32)
[2020-07-12] MEDS: THERAHONEY GEL 1.5 OZ TUBE TP SCH (09:32)
[2020-07-12] MEDS: Z GUARD REMEDY 2 OZ OINT TP SCH (09:32)
[2020-07-12 10:06] LABS: CALCIUM, SERUM 8.3 mg/dL (8.5-10.1); CARBON DIOXIDE 23 mmol/L (21-32); CHLORIDE 113 mmol/L (98-107); CREATININE 1.7 mg/dL (0.6-1.3); GLUCOSE 179 mg/dL (74-106); POTASSIUM 4.4 mmol/L (3.5-5.1); SODIUM SERUM 145 mmol/L (136-145); UREA NITROGEN, BLOOD 52 mg/dL (7-18)
[2020-07-12 10:13] LABS: ALANINE AMINOTRANSFERASE 41 U/L (12-78); ALBUMIN 2.5 g/dL (3.4-5.0); ALKALINE PHOSPHATASE 45 U/L (46-116); ASPARTATE AMINOTRANSFERASE 30 U/L (15-37); BILIRUBIN,TOTAL 0.2 mg/dL (0.2-1.0); TOTAL PROTEIN, SERUM 5.6 g/dL (6.4-8.2)
[2020-07-12] MEDS: *INSULIN REGULAR(HUMULIN R)HUM 100 UNIT/ML VIAL SQ PRN ×2 (12:46→21:29)
--- NOTE | 2020-07-12 15:00 | NUR ---
RN NOTE SPOKE WITH DAUGHTER SANTIAGO, ALL QUESTIONS ANSWERED TO HER COMPLETE SATISFACTION REGARDING PT CARE/STATUS
[2020-07-12] MEDS: ACETYLCYSTEINE 20% SOLN 800 MG/4 ML VIAL NEB SCH ×2 (15:45→23:30)
[2020-07-12 16:00] VITALS: BP 118/63
[2020-07-12] MEDS: INSULIN REGULAR, HUMAN 100 UNIT/ML 3 ML VIAL SQ PRN (17:26)
--- NOTE | 2020-07-12 19:00 | NUR ---
RN CLOSING NOTE NO CHANGES TO PT STATUS, PT IN STABLE CONDITION. AUDIBLE WHEEZING STILL, BUT SPO2 97%, NO SIGNS OF RESP DISTRESS OR SOB. ALL PT SAFETY PRECAUTION IN PLACE. WILL ENDORSE JOSH TO ONCOMING RN
--- NOTE | 2020-07-12 19:30 | NUR ---
RN OPENING NOTE, PATIENT A/Ox1 AND CONFUSED, ON ROOM AIR NO SOB/ACUTE RESP DISTRESS RO SOB, BUT WHEEZES NOTED, RT TO GIVE BREATHING TREATMENT AT THIS TIME, #20 LFA AND RFA #20 SL, BOTH LINES PATENT AND INTACT, ON BILATERAL SOFT WRIST RESTRAINTS, NO CIRCULATION COMPROMISED OR ABNORMALITY NOTED AT SITE, BED LOCKED AND IN LOWEST POSITION, CALL RIGHT WITHIN REACH, S/R X2 UP, ALL SAFETY PRECAUTIONS IMPLEMENTED, WILL CONTINUE TO MONITOR CLOSELY
[2020-07-12 20:00] VITALS: BP 163/69
[2020-07-12] MEDS: risperiDONE 0.25 MG TABLET PO SCH (20:28)
[2020-07-12] MEDS: TAMSULOSIN 0.4 MG CAP.SR.24H PO SCH (21:25)
[2020-07-12] MEDS: GABAPENTIN 300 MG CAPSULE PO SCH (21:25)
--- NOTE | 2020-07-12 22:15 | NUR ---
RN NOTES, INFORMED DR ANGEL FINANCIAL PROCESSING CLERK THAT PATIENT WITH AUDIBLE WHEEZES AND O2 85% AT RA, AND MD REPLIED WITH ORDER TO DO CXR AND GIVE THE BREATHING TREATMENT NOW, NOTED AND CARRIED OUT, PATIENT ON 3LPM AT THIS TIME, AND IVF ON HOLD,WILL CONTINUE TO MONITOR CLOSELY.
--- NOTE | 2020-07-12 22:30 | NUR ---
RN NOTES, INFORMED RADIOLOGY REGARDING STAT CXR,, WILL COME SOON.
[2020-07-13] VITALS (8 sets, daily range): BP systolic 103–135; BP diastolic 52–76
[2020-07-13] MEDS ORDERED: FUROSEMIDE 20 MG/2 ML VIAL IV ONE (00:30)
--- NOTE | 2020-07-13 01:15 | NUR ---
RN NOTES, RELAYED RESULTS FOR CXR TO DR RYAN AND REPLIED WITH NEW ORDER TO GIVE LASIX IV 2OMG X ONE AT THIS TIME, NOTED AND CARRIED OUT.
[2020-07-13] MEDS: ALBUTEROL FS 2.5 MG/3 ML VIAL.NEB NEB SCH ×6 (03:40→23:47)
--- NOTE | 2020-07-13 06:37 | NUR ---
RN CLOSING NOTE, PATIENT A/Ox1 AND CONFUSED, AT 2LPM VIA NC WITH O2 WNL, WITH ONE EPISODE OF DESATURATION LAST NIGHT, PLACED PATIENT ON NC 2LPM, NO SOB/ACUTE RESP DISTRESS AT THIS TIME, BUT CONTINUE WITH WHEEZES, BREATHING TREATMENTS ADMINISTERED ORDERED, ON BILATERAL SOFT WRIST RESTRAINTS, NO CIRCULATION COMPROMISED OR ABNORMALITY NOTED AT SITE, BED LOCKED AND IN LOWEST POSITION, CALL RIGHT WITHIN REACH, S/R X2 UP, ALL SAFETY PRECAUTIONS IMPLEMENTED, WILL ENDORSE CONTINUITY OF CARE TO ONCOMING NURSE.
[2020-07-13 06:38] LABS: BASOPHILS % (AUTO) 0.3 % (0.0-2.0); EOSINOPHILS % (AUTO) 2.6 % (0.0-6.0); HEMATOCRIT 23 % (39-51); HEMOGLOBIN 7.7 g/dL (13.5-17.5); LYMPHOCYTES # (AUTO) 0.7 /CMM (0.8-4.8); LYMPHOCYTES % (AUTO) 11.3 % (20.0-44.0); MEAN CORPUSCULAR HGB CONC 34 g/dl (31.0-36.0); MEAN CORPUSCULAR VOLUME 102 fL (80-96); MONOCYTES # (AUTO) 0.7 /CMM (0.1-1.30); MONOCYTES % (AUTO) 10.1 % (2.0-12.0); NEUTROPHILS # (AUTO) 4.9 /CMM (1.8-8.9); NEUTROPHILS % (AUTO) 75.7 % (43.0-81.0); PLATELET COUNT (AUTO) 211 /CMM (150-450); RED BLOOD CELL COUNT(AUTO) 2.21 MIL/uL (4.5-6.0); WHITE BLOOD COUNT (AUTO) 6.5 K/uL (4.3-11.0)
[2020-07-13 06:46] LABS: CALCIUM, SERUM 7.9 mg/dL (8.5-10.1); CARBON DIOXIDE 26 mmol/L (21-32); CHLORIDE 112 mmol/L (98-107); GLUCOSE 179 mg/dL (74-106); MAGNESIUM 2.2 mg/dL (1.8-2.4); PHOSPHORUS 4.5 mg/dL (2.5-4.9); POTASSIUM 5.2 mmol/L (3.5-5.1); SODIUM SERUM 143 mmol/L (136-145); UREA NITROGEN, BLOOD 60 mg/dL (7-18)
[2020-07-13] MEDS: BLOOD SUGAR DIAGNOSTIC 1 EACH STRIP VI SCH ×4 (07:30→21:15)
--- NOTE | 2020-07-13 07:30 | NUR ---
RN OPENING NOTE PATIENT IN BED HIGH MAGUIRE'S, A/Ox1 AND CONFUSED, WILL REORIENT EVERY TIME IM WITH PT. PT ON NC 2LPM, CURRENTLY RECEIVING BREATHING TREATMENT FROM RT, WITH NO SIGNS OF RESP DISTRESS OR SOB. L MEDIAL FOOT, SACRAL STAGE 3, RHEEL DTI, LHEEL DIABETIC ULCER HAVE APPROPRIATE DRESSINGS APPLIED. #20 LFA NS TKO, RFA #20 SL, BOTH LINES FLUSHED, PATENT, INTACT, AND NO SIGNS OF INFECTION/INFILTRATION. BILATERAL SOFT WRIST RESTRAINTS ARE APPLIED, BILAT CMS INTACT. BED IS LOCKED IN THE LOWEST POSITION, CALL ROD WITHIN REACH, 4 GUARD RAILS RAISED, AND ALL HOSPITAL SAFETY PRECAUTIONS ARE BEING FOLLOWED. WILL CONT TO MONITOR
[2020-07-13] MEDS: ACETYLCYSTEINE 20% SOLN 800 MG/4 ML VIAL NEB SCH ×3 (08:08→23:47)
[2020-07-13] MEDS: *INSULIN REGULAR(HUMULIN R)HUM 100 UNIT/ML VIAL SQ PRN ×2 (09:08→21:16)
[2020-07-13] MEDS: LEVOTHYROXINE SODIUM 25 MCG TABLET PO SCH (09:15)
[2020-07-13] MEDS: ASPIRIN 81 MG TAB.CHEW PO SCH (09:16)
[2020-07-13] MEDS: GABAPENTIN 100 MG CAPSULE PO SCH ×2 (09:16→18:16)
[2020-07-13] MEDS: ATORVASTATIN 40 MG TABLET PO SCH (09:16)
[2020-07-13] MEDS: MEMANTINE HCL 5 MG TABLET PO SCH (09:16)
[2020-07-13] MEDS: DONEPEZIL 5 MG TABLET PO SCH (09:16)
[2020-07-13] MEDS: MEGESTROL ACETATE 40 MG TABLET PO SCH ×2 (09:17→18:16)
[2020-07-13] MEDS: CARVEDILOL 12.5 MG TABLET PO SCH ×2 (09:18→20:52)
[2020-07-13] MEDS: THERAHONEY GEL 1.5 OZ TUBE TP SCH (09:19)
[2020-07-13] MEDS: HYDROGEL DRESSING 90 GM TUBE TP SCH (09:19)
[2020-07-13] MEDS: Z GUARD REMEDY 2 OZ OINT TP SCH (09:19)
[2020-07-13] MEDS: ENOXAPARIN SODIUM 30 MG/0.3 ML DISP.SYRIN SQ SCH (09:20)
[2020-07-13] MEDS: CLOPIDOGREL BISULFATE 75 MG TABLET PO SCH (09:20)
--- NOTE | 2020-07-13 09:21 | NUR ---
RN NOTE CONFIRMED WITH GARO SWEENEY NP, OK TO GIVE LOVENOX AND PLAVIX W SLIGHT DECREASE IN H/H FROM YESTERDAY. NO SIGNS OF ACTIVE BLEED
--- NOTE | 2020-07-13 12:30 | NUR ---
RN NOTE OBTAINED VERBAL CONSENT VIA TELEPHONE FROM PT DAUGHTER SANTIAGO FOR BLOOD TRANSFUSION
[2020-07-13] MEDS: INSULIN REGULAR, HUMAN 100 UNIT/ML 3 ML VIAL SQ PRN ×2 (12:40→18:15)
--- NOTE | 2020-07-13 15:28 | NUR ---
PER VITO HEAD CORRECTION OFFICER PATIENT WILL BE DISCHARGE TOMRROW AT 8AM TO HOME VIA MD DELFINO AWARE.
--- NOTE | 2020-07-13 15:31 | NUR ---
ADDENDUM PER CM VITO PT. WILL GO TO BOARD AND CARE IN AM.
[2020-07-13] MEDS ORDERED: ASPI-1169 PO (15:34)
--- NOTE | 2020-07-13 19:17 | NUR ---
RN CLOSING NOTE 1 UNIT PRBC TRANSFUSION COMPLETE. PT TOLERATED WELL WITH NO SYMPTOMS OF REACTION, VITALS ALL WNL, PT IN STABLE CONDITION. NO CHANGES TO PT STATUS. PT ON NC 2LPM, NO SIGNS OF RESP DISTRESS OR SOB, SPO2 96%, ALTHOUGH PT STILL WHEEZING, IN HIGH FOWLERS. ALL SAFETY PRECAUTIONS IN PLACE. JOSH ENDORSED TO BUSINESS PROJECT MANAGER RN
--- NOTE | 2020-07-13 19:30 | NUR ---
RN NOTE RECEIVED PT IN BED, S/P BLOOD TRANSFUSION. NO S/SX OF REACTION NOTED. PT DENIES PAIN. ON O2 AT 2LPM SATING AT 96 %. WHEEZING NOTED. NO RESP DISTRESS NOTED. KEPT HOB ELEVATED. WOUND DRESSINGS CLEAN DRY AND INTACT. WITH BILATERAL WRIST SOFT RESTRAINTS, WITH GOOD SKIN AND CIRCULATION. IV ON LFA LEAKING WHEN FLUSHED, DC'D, NO SIGNS OF INFECTION NOTED. IV ON RFA PATENT AND INTACT. ALL SAFETY MEASURES IMPLEMENTED PER PROTOCOL, CALL LIGHT WITHIN REACH, BED LOCKED IN LOWEST POSITION. SIDE RAILS UP. WILL CONTINUE TO MONITOR.
[2020-07-13] MEDS: risperiDONE 0.25 MG TABLET PO SCH (20:51)
[2020-07-13] MEDS: TAMSULOSIN 0.4 MG CAP.SR.24H PO SCH (21:00)
[2020-07-13] MEDS: GABAPENTIN 300 MG CAPSULE PO SCH (21:00)
--- NOTE | 2020-07-14 01:00 | NUR ---
RN NOTE PT SLEEPING, RELEASED FROM BILATERAL WRIST RESTRAINTS. GOOD CIRCULATION, NO SKIN BREAKDOWN NOTED WILL CONTINUE TO MONITOR.
[2020-07-14] MEDS: ALBUTEROL FS 2.5 MG/3 ML VIAL.NEB NEB SCH ×2 (03:13→07:38)
[2020-07-14 04:00] VITALS: BP 118/61
--- NOTE | 2020-07-14 05:20 | NUR ---
RN NOTE PT SLEEPING COMFORTABLY, NO DISTRESS NOTED. BREATHING TX GIVEN BY RT Q4H. STILL OFF W/ RESTRAINTS, NO DISRUPTION NOTED, NO PULING OUT OR REMOVING LINES NOTED. WILL CONTINUE TO MONITOR.
--- NOTE | 2020-07-14 06:39 | NUR ---
RN NOTE PT IN BED SLEEPING, EASILY AROUSABLE BY TOUCH STIMULI. NO ACUTE CHANGES NOTED. CONTINUE ON O2 VIA NC AT 2LPM. NO RESP DISTRESS NOTED. RESTRAINTS REMAIN RELEASED. REPOSITIONED Q2H. WOUND DRESSINGS DRY AND INTACT. NO S/SX OF HYPO/HYPERGLYCEMIA NOTED. ALL SAFETY MEASURES MAINTAINED. PT TO BE D/C TODAY. WILL ENDORSE TO NEXT SHIFT NURSE.
[2020-07-14] MEDS: ACETYLCYSTEINE 20% SOLN 800 MG/4 ML VIAL NEB SCH (07:38)
[2020-07-14] MEDS: GABAPENTIN 100 MG CAPSULE PO SCH (08:36)
[2020-07-14] MEDS: LEVOTHYROXINE SODIUM 25 MCG TABLET PO SCH (08:36)
[2020-07-14] MEDS: BLOOD SUGAR DIAGNOSTIC 1 EACH STRIP VI SCH (08:36)
[2020-07-14 08:37] VITALS: BP 121/57
[2020-07-14] MEDS: CARVEDILOL 12.5 MG TABLET PO SCH (08:37)
[2020-07-14] MEDS: MEGESTROL ACETATE 40 MG TABLET PO SCH (08:37)
[2020-07-14] MEDS: ATORVASTATIN 40 MG TABLET PO SCH (08:37)
[2020-07-14] MEDS: CLOPIDOGREL BISULFATE 75 MG TABLET PO SCH (08:38)
[2020-07-14] MEDS: MEMANTINE HCL 5 MG TABLET PO SCH (08:38)
[2020-07-14] MEDS: ASPIRIN 81 MG TAB.CHEW PO SCH (08:38)
[2020-07-14] MEDS: DONEPEZIL 5 MG TABLET PO SCH (08:38)
--- NOTE | 2020-07-14 09:00 | NUR ---
[facility] RN ARISTIDES NOTIFIED FOR REPORT. REPORT GIVEN TO EMS FOR TRANSPORT. PT ON 2L O2 NO RESPIRATORY DISTRESS. ALL BELONGINGS SIGNED AND GIVEN WITH PATIENT. ALL IV AND WRIST BANDS REMOVED.
== END 2020-07-14 09:00 | disposition home health service (06) | DRG 673 ==
LOC: ER 19:01 → TELE1 22:05 → MEDSG1 07-08 08:50
PROVIDERS: ADMIT Registered Nurse; ATTEND Nurse Practitioner Family
PROC: 0JBQ0ZZ Excision of Right Foot Subcutaneous Tissue and Fascia, Open Approach (ICD-10-PCS; principal; 2020-07-11)
PROC: 30233N1 Transfusion of Nonautologous Red Blood Cells into Peripheral Vein, Percutaneous Approach (ICD-10-PCS; 2020-07-13)
DX: N39.0 Urinary tract infection, site not specified (principal); I21.4 Non-ST elevation (NSTEMI) myocardial infarction; L89.153 Pressure ulcer of sacral region, stage 3; G92 Toxic encephalopathy; N17.0 Acute kidney failure with tubular necrosis; I13.0 Hypertensive heart and chronic kidney disease with heart failure and stage 1 through stage 4 chronic kidney disease, or unspecified chronic kidney disease; F05 Delirium due to known physiological condition; L97.429 Non-pressure chronic ulcer of left heel and midfoot with unspecified severity; L97.919 Non-pressure chronic ulcer of unspecified part of right lower leg with unspecified severity; L97.419 Non-pressure chronic ulcer of right heel and midfoot with unspecified severity; E78.5 Hyperlipidemia, unspecified; E11.22 Type 2 diabetes mellitus with diabetic chronic kidney disease; N18.32 Chronic kidney disease, stage 3b; B96.20 Unspecified Escherichia coli [E. coli] as the cause of diseases classified elsewhere; F25.9 Schizoaffective disorder, unspecified; L98.8 Other specified disorders of the skin and subcutaneous tissue; I50.9 Heart failure, unspecified; E11.621 Type 2 diabetes mellitus with foot ulcer; Z20.822 Contact with and (suspected) exposure to COVID-19; Z87.440 Personal history of urinary (tract) infections; E11.40 Type 2 diabetes mellitus with diabetic neuropathy, unspecified; Z73.6 Limitation of activities due to disability; D63.8 Anemia in other chronic diseases classified elsewhere; E11.622 Type 2 diabetes mellitus with other skin ulcer; N40.1 Benign prostatic hyperplasia with lower urinary tract symptoms; L97.529 Non-pressure chronic ulcer of other part of left foot with unspecified severity; S61.205A Unspecified open wound of left ring finger without damage to nail, initial encounter; E87.5 Hyperkalemia; X58.XXXA Exposure to other specified factors, initial encounter; Y93.9 Activity, unspecified; Y92.89 Other specified places as the place of occurrence of the external cause; F01.50 Vascular dementia, unspecified severity, without behavioral disturbance, psychotic disturbance, mood disturbance, and anxiety; Z79.4 Long term (current) use of insulin
CPT/HCPCS: 36415; 70450-TC; 71045-TC; 76770-TC; 80048-TC; 80053-TC; 80061-TC; 80076-TC; 81001; 82728-TC; 82962-TC; 83540-TC; 83735-TC; 84100-TC; 84443-TC; 84484-TC; 85025-TC; 86850-TC; 87081-TC; 87086-TC; 87186-TC; 93307-TC; 94762-TC; 94799-TC; A4349; A6248; A6403; C9803; G0378; G0480; J0696; J1650; J1815; J1940; J2920; J3475; J7030; J7050; J7060; P9016-BL; U0003